=== PATIENT | female | born 1995 | race Two or more races ===

== ENCOUNTER 2017-10-06 06:05 | Outpatient (CLI) | payer MEDICAID ==
[~2017-10-06] VITALS: Ht 160.7 cm; Wt 65.3 kg
[~2017-10-06 06:05] MED LIST: DOCU-416 PO; IBUP800T37 PO; OXYC-865 PO; PREN-127 PO
[2017-10-06] MEDS ORDERED: LR(*) 1000 ML BAG 1,000 ML IV PRN (06:07)
[2017-10-06] MEDS ORDERED: DLR(*) 1000 ML BAG 1,000 ML IV PRN (06:07)
[2017-10-06 06:30] VITALS: BP 133/80; Ht 160.7 cm; Wt 65.3 kg
--- NOTE | 2017-10-06 09:02 | History & Physical ---
History of Present Illness Age of Patient: 22 : 3 Para or TPAL: 1011 EDC per LMP: Oct 12, 2017 Estimated Gestational Age: 39.1 Chief Complaint contractions History of Present Illness The patient is a 22 year old 3 para 1011 admitted at 39 1/7 weeks estimated gestational age with an estimated date of delivery 10/12/17. P atient is admitted with complaint of contractions . No vaginal bleeding. Good movement and occasional contractions. She was evaluated for active labor. She had an uncomplicated course. Her record was reviewed. History Allergies: Coded Allergies: No Known Drug Allergies (Unverified , 10/11/16) Social History: No T/E/D. Med Rec Home Meds Reported Medications Vits W-Ca,Fe,Fa(<1MG) ( VITAMINS) 1 Each Tablet, 1 EACH PO DAILY, TAB 11/13/15 Exam General Exam Vital Signs Vital Signs Date Time Temp Pulse Resp B/P (MAP) Pulse Ox O2 Delivery O2 Flow Rate FiO2 10/06/17 06:30 98.0 88 17 133/80 (97) 98 Room Air Cardiovascular: Regular Rate and Rhythm Respiratory: Clear to Auscultation Abdomen: Gravid - Non-Tender Extremities: No Edema Cervical Dialation: 2 (RN) Uterine Contractions(Q min): 10 Uterine Contraction Strength: Mild Fetus Heart Tones: 130 FHT Category: I Assessment and Plan Problems: (1) Threatened labor Assessment & Plan: has history of c section desires tolac. no change in cervix over 2 hours will discharge home Copies to: PRISCILA ZHENG MD ; PRISCILA ZHENG MD Oct 06, 2017 09:02
[2017-10-07] MEDS ORDERED: RANI-366 PO (07:02)
[2017-10-07] MEDS ORDERED: DOCU100C49 PO (07:03)
== END 2017-10-07 08:38 | disposition home or self-care (01) ==
LOC: L&D 06:05 → UNDOADMOB 06:05 → OB 06:05 → UNDODISOB 08:38 → L&D 10-07 08:38
PROVIDERS: ATTEND Obstetrics & Gynecology
DX: O47.1 False labor at or after 37 completed weeks of gestation (principal); Z3A.39 39 weeks gestation of pregnancy
CPT/HCPCS: 99213; G0378; G0379

== ENCOUNTER 2017-10-07 06:12 | Outpatient (CLI) | payer MEDICAID ==
[2017-10-06 06:30] VITALS: BMI 25.3
[2017-10-07] MEDS ORDERED: RANI-366 PO (07:02)
[2017-10-07] MEDS ORDERED: DOCU100C49 PO (07:03)
--- NOTE | 2017-10-07 07:41 | History & Physical ---
History of Present Illness Age of Patient: 22 : 3 Para or TPAL: 1011 EDC per LMP: Oct 12, 2017 Estimated Gestational Age: 39.2 Chief Complaint CONTRACTIONS History of Present Illness The patient is a 22 year old 3 para 1011 admitted at 39 2/7 weeks estimated gestational age with an estimated date of delivery 10/12/17. Patient is admitted with complaint of contractions . No vaginal bleeding. Good movement and occasional contractions. She was evaluated for active labor. She had an uncomplicated course. Has history of c section and desires TOLAC. Her record was reviewed. History Allergies: Coded Allergies: No Known Drug Allergies (Unverified , 10/11/16) Social History: No T/E/D. Med Rec Home Meds Reported Medications Docusate Sodium (STOOL SOFTENER) 100 Mg Capsule, 100 MG PO, CAPSULE 10/07/17 Ranitidine Hcl (ZANTAC) 150 Mg Tablet, 150 MG PO BID, TAB 10/07/17 Vits W-Ca,Fe,Fa(<1MG) ( VITAMINS) 1 Each Tablet, 1 EACH PO DAILY, TAB 11/13/15 Exam General Exam Cardiovascular: Regular Rate and Rhythm Respiratory: Clear to Auscultation Abdomen: Gravid - Non-Tender Extremities: No Edema Cervical Dialation: 3 (rn) Uterine Contractions(Q min): 8 Uterine Contraction Strength: Mild Fetus Heart Tones: 130 Heart Tone Variabilty: Moderate FHT Accelerations: 15X15 FHT Category: I Assessment and Plan Problems: (1) Threatened labor Assessment & Plan: contractions reported more intense this am, minimal uterine activity on monitor will monitor for change in cervix Copies to: PRISCILA ZHENG MD ; PRISCILA ZHENG MD Oct 07, 2017 07:41
--- NOTE | 2017-10-07 10:58 | Labor Progress Note ---
Labor Subjective Progress Notes Subjective After long period of observation and cervix exam unchanged and contractions have spaced out. 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 She wants to labor naturally. Informed them that currently she is not active. She is to go home and rest and return if things get bad again. ELIZA SAMUELS MD Oct 07, 2017 10:58
== END 2017-10-07 10:20 | disposition home or self-care (01) ==
LOC: OB 06:12 → L&D 06:12 → UNDOADMOB 06:12 → OB 06:12 → L&D 10:20 → UNDODISOB 10:20 → EDSTATUS 13:37
PROVIDERS: ATTEND Obstetrics & Gynecology
DX: O47.1 False labor at or after 37 completed weeks of gestation (principal); Z3A.39 39 weeks gestation of pregnancy
CPT/HCPCS: 99213

== ENCOUNTER 2017-10-08 22:50 | Inpatient (IN) | payer MEDICAID ==
[~2017-10-08] VITALS: Ht 161.3 cm; Wt 65.3 kg
[~2017-10-08 22:50] MED LIST changes: +DOCU100C49 PO; +RANI-366 PO
[2017-10-08 23:00] VITALS: Ht 161.3 cm; Wt 65.3 kg
[2017-10-08] MEDS ORDERED: OXYTOCIN 30 UNIT/D5LR 500 ML 500 ML ONE (23:18)
[2017-10-08] MEDS ORDERED: PENICILLIN G 5 MILLUN/100 ML 100 ML ONE (23:21)
[2017-10-08] MEDS ORDERED: LR(*) 1000 ML BAG 1,000 ML IV PRN (23:33)
[2017-10-08] MEDS ORDERED: OXYTOCIN 30 UNIT/D5LR 500 ML 500 ML IV PRN (23:33)
[2017-10-08] MEDS ORDERED: DLR(*) 1000 ML BAG 1,000 ML IV PRN (23:33)
[2017-10-08] MEDS ORDERED: FAMOTIDINE(*) 20MG/50ML PREMIX 50 ML IVPB PRN (23:33)
[2017-10-08] MEDS ORDERED: LIDOCAINE 1% LOCAL 300 MG/30ML INJ PRN (23:35)
[2017-10-08] MEDS ORDERED: PENICILLIN G 5 MILLUN/100 ML 100 ML IVPB ONE (23:35)
[2017-10-08] MEDS ORDERED: METOCLOPRAMIDE 10 MG/2 ML SDV IVP PRN (23:35)
[2017-10-08] MEDS ORDERED: fentaNYL CITR 100 MCG/2 ML AMP IVP PRN (23:35)
[2017-10-08] MEDS ORDERED: cefOXitin/DEX(*) 2GM/50ML PREM 50 ML IVPB PRN (23:35)
[2017-10-08] MEDS ORDERED: FLUSH 10 ML SYR IVP PRN (23:35)
[2017-10-08] MEDS ORDERED: CARBOPROST TROMETHAM 250MCG/ML IM ONLY ONE (23:50)
[2017-10-09] VITALS (7 sets, daily range): BP systolic 116–128; BP diastolic 56–76
[2017-10-09] MEDS ORDERED: fentaNYL CITR 100 MCG/2 ML AMP IVP PRN (01:45)
[2017-10-09] MEDS ORDERED: MAGNESIUM HYDROXIDE* 30ML UDCP PO PRN (02:25)
[2017-10-09] MEDS ORDERED: MEASLES,MUMP,RUBELLA VAC 0.5ML SC ONE (02:25)
[2017-10-09] MEDS ORDERED: INFLUENZA VIRUS VAC 0.5 ML SYR IM ONLY ONE (02:25)
[2017-10-09] MEDS ORDERED: BENZOCAINE 20% 60 ML BTL TP PRN (02:25)
[2017-10-09] MEDS ORDERED: HYDROCORTISONE 2.5% CR 30GM TB PR PRN (02:25)
[2017-10-09] MEDS ORDERED: LANOLIN OINT 7 GM TUBE TP PRN (02:25)
[2017-10-09] MEDS ORDERED: ACETAMINOPHEN 325 MG TAB PO PRN (02:25)
[2017-10-09] MEDS ORDERED: DIPHTH/TETANUS/ACEL. PERTUSSIS IM ONE (02:25)
[2017-10-09] MEDS ORDERED: APAP/HYDROCODONE 325/5 TAB PO PRN (02:25)
[2017-10-09] MEDS ORDERED: GLYCERIN/WITCH HAZEL LEAF 1 PK TOP PRN (02:25)
--- NOTE | 2017-10-09 02:35 | History & Physical ---
History of Present Illness Age of Patient: 22 : 3 Para or TPAL: 1 EDC per LMP: Oct 12, 2017 Estimated Gestational Age: 39 Chief Complaint Labor History of Present Illness Presented in active labor with SROM at 2220. History of prior c/s due to face presentation. Pt had already consented for . Past Medical, Surgical, Fami ly and Obstetric Histories reviewed. Please see ACOG chart. History Allergies: Coded Allergies: No Known Drug Allergies (Unverified , 10/11/16) Social History: No T/E/D. Med Rec Home Meds Reported Medications Docusate Sodium (STOOL SOFTENER) 100 Mg Capsule, 100 MG PO, CAPSULE 10/07/17 Ranitidine Hcl (ZANTAC) 150 Mg Tablet, 150 MG PO BID, TAB 10/07/17 Vits W-Ca,Fe,Fa(<1MG) ( VITAMINS) 1 Each Tablet, 1 EACH PO DAILY, TAB 11/13/15 Review of Systems All Systems Reviewed/Normal: Yes, Except as Noted Exam General Exam General Apperance: Alert/Awake/No Acute Distress Neuro: No Gross deficits Cardiovascular: Regular Rate and Rhythm Respiratory: No Respiratory Distress Abdomen: Gravid - Non-Tender Psychological: Alert & Oriented X3, Appropriate Mood & Affect Cervical Dialation: 9 Cervical Effacement (%): 100 Cervical Consistency: Soft Cervical Position: Anterior Station: +2 Presentation: Vertex Fetus Heart Tone Variabilty: Moderate FHT Accelerations: 15X15 FHT Category: I Assessment and Plan CORPORATE INTERN Plan: Routine Labor Care Problems: (1) 39 weeks gestation of (2) Previous delivery affecting (3) GBS carrier Assessment & Plan: PCN prophylaxis ELIZA SAMUELS MD Oct 09, 2017 02:35
--- NOTE | 2017-10-09 02:40 | OB Delivery Note ---
Delivery Note Vaginal Delivery Type: Spont. Vaginal Delivery Delivery Date: Oct 09, 2017 Delivery Time: 02:00 Estimated Gestational Age(wks): 39.4 Delivery Anesthesia: Pudental Infant Sex: Male Weight (gms): 2820 Apgars: 1 Minute (8), 5 Minute (9) Repair Needed: Laceration, 1st Degree Estimated Blood Loss: 200 Notes: Presented in active labor and 9cm. Progressed to complete rapidly at 2311. Began pushing and pudendal administered. Delay in delivery due to pushing ineffectively at first. After coaching, she gradually brought baby to position. Perineum stabilized. Baby in ATUL position delivered over first de gree lacerations at 4 and 8 o'clock. Placenta delivered spontaneously and intact. No complications. Author'S Agent in Attendence: No Copies to: ELIZA SAMUELS MD ; ELIZA SAMUELS MD Oct 09, 2017 02:40
[2017-10-09] MEDS ORDERED: LIDOCAINE 1% LOCAL 300 MG/30ML 30 ML ONE (05:06)
[2017-10-09] MEDS ORDERED: LR(*) 1000 ML BAG 1,000 ML ONE ×2 (05:07→05:24)
[2017-10-09] MEDS: IBUPROFEN 800 MG TAB PO SCH ×2 (09:15→17:10)
[2017-10-09] MEDS: DOCUSATE CALCIUM 240 MG CAP PO SCH ×2 (09:15→21:07)
[2017-10-09] MEDS ORDERED: SIMETHICONE 80 MG CHEW CHEW PRN (14:15)
[2017-10-10] MEDS: IBUPROFEN 800 MG TAB PO SCH ×3 (00:53→18:35)
[2017-10-10 08:30] VITALS: BP 113/66
--- NOTE | 2017-10-10 08:55 | OB/GYN Progress Note ---
OB Subjective Progress Notes Subjective Doing well. Pain controlled and ambulating and voiding well. Wanting to go home. GI: NEG Nausea : Voiding Well Pain: Mild OB Objective Physical Exam Vital Signs Date Time Temp Pulse Resp B/P (MAP) Pulse Ox O2 Delivery O2 Flow Rate FiO2 10/09/17 23:09 98.4 82 20 116/73 (87) 94 Room Air Intake and Output 10/10/17 07:00 Intake Total 240 ml Balance 240 ml Intake Oral 240 ml General Appearance: Alert/Awake/No Acute Distress Neurological: No Gross deficits Cardiovascular: Normal Rhythm & Peripheral Pulses, Regular Rate and Rhythm Respiratory: No Respiratory Distress, Clear to Auscultation Abdomen: Soft, Non-Tender, Non-Distended, Fundus Firm, Non-Tender Integumentary: Skin Intact without Lesions or Rash Psychological: Alert & Oriented X3, Appropriate Mood & Affect Result Diagram: 10/09/17 0619 Assessment and Plan 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 ELIZA SAMUELS MD Oct 10, 2017 08:55
[2017-10-10] MEDS: DOCUSATE CALCIUM 240 MG CAP PO SCH ×2 (11:16→21:22)
[2017-10-10 17:30] VITALS: BP 123/73
[2017-10-10 19:00] VITALS: BP 126/69
[2017-10-10 23:10] VITALS: BP 114/58
[2017-10-11] MEDS: IBUPROFEN 800 MG TAB PO SCH ×2 (00:58→10:05)
[2017-10-11 08:00] VITALS: BP 121/66
--- NOTE | 2017-10-11 08:53 | OB/GYN Progress Note ---
OB Subjective Progress Notes Subjective Continues to do well. No problems. GI: NEG Nausea : Voiding Well OB Objective Physical Exam Vital Signs Date Time Temp Pulse Resp B/P (MAP) Pulse Ox O2 Delivery O2 Flow Rate FiO2 10/11/17 08:00 98.3 87 18 121/66 (84) Room Air 10/10/17 17:30 96 General Appearance: Alert/Awake/No Acute Distress Neurological: No Gross deficits Cardiovascular: Normal Rhythm & Peripheral Pulses, Regular Rate and Rhythm Respiratory: No Respiratory Distress, Clear to Auscultation Abdomen: Soft, Non-Tender, Non-Distended, Fundus Firm, Non-Tender Integumentary: Skin Intact without Lesions or Rash Psychological: Alert & Oriented X3, Appropriate Mood & Affect Result Diagram: 10/09/17 0619 Assessment and Plan CHICKEN BONER Plan: Discharge Home Today Problems: (1) 39 weeks gestation of (2) Previous delivery affecting (3) GBS carrier (4) care and examination immediately after delivery ELIZA SAMUELS MD Oct 11, 2017 08:53
[2017-10-11] MEDS ORDERED: IBUP800T37 PO (08:54)
--- NOTE | 2017-10-11 08:55 | OB/GYN Discharge Summary ---
Discharge Summary Reason for Hosp/Final Diag: (1) 39 weeks gestation of (2) Previous delivery affecting (3) GBS carrier (4) care and examination immediately after delivery [place]ates Vital Signs Vital Signs Date Time Temp Pulse Resp B/P (MAP) Pulse Ox O2 Delivery O2 Flow Rate FiO2 10/11/17 08:00 98.3 87 18 121/66 (84) Room Air 10/10/17 17:30 96 Weight (Pounds): 144 Result Diagram: 10/09/17618 Condition: Improved Discharge: Home, Self Mcfp Meds Reported Medications Docusate Sodium (STOOL SOFTENER) 100 Mg Capsule, 100 MG PO, CAPSULE 10/07/17 Ranitidine Hcl (ZANTAC) 150 Mg Tablet, 150 MG PO BID, TAB 10/07/17 Vits W-Ca,Fe,Fa(<1MG) ( VITAMINS) 1 Each Tablet, 1 EACH PO DAILY, TAB 11/13/15 Follow up Referrals: STRIKE ON MACHINE OPERATOR - In 6 Weeks @ [facility] with ELIZA BELLO MD Follow up with: Dr. Bello [phone] Follow up in: 6 wks PP or PO Discharge Diet: As Tolerates Discharge Activity: As Tolerates, No Heavy Lifting x 6 wks, No Heavy Lifting > 10lb, Pelvic Rest Copies to: ELIZA BELLO MD ; ELIZA BELLO MD Oct 11, 2017 08:55
[2017-10-11] MEDS: DOCUSATE CALCIUM 240 MG CAP PO SCH (10:05)
== END 2017-10-11 14:42 | disposition home or self-care (01) | DRG 775 ==
LOC: OB 22:50
PROVIDERS: ADMIT Obstetrics & Gynecology; ATTEND Obstetrics & Gynecology
PROC: 10E0XZZ Delivery of Products of Conception, External Approach (ICD-10-PCS; principal; 2017-10-09)
PROC: 0HQ9XZZ Repair Perineum Skin, External Approach (ICD-10-PCS; 2017-10-09)
DX: O34.211 Maternal care for low transverse scar from previous cesarean delivery (principal); O99.824 Streptococcus B carrier state complicating childbirth; O70.0 First degree perineal laceration during delivery; Z3A.39 39 weeks gestation of pregnancy; Z37.0 Single live birth
CPT/HCPCS: 36415; 85027; J2001; J2540; J3010; J7120